=== PATIENT | female | born 1955 | race Caucasian/White ===

== ENCOUNTER 2022-07-11 05:59 | Observation (INO) ==
--- NOTE | 2022-07-07 10:31 | Anesthesiology Consultation ---
Date of Service July 07, 2022 Assessment & Plan (1) Encounter for pre-operative examination: - check CBC with diff and BMP STAT am DOS. - COVID screening: Per buzzle buffer on 07/07/2022: Travel screen negative, no known COVID-19 positive contacts or current COVID-19 related symptoms in past 2 weeks. To surgeon's discretion if preop COVID testing is needed. Chart Review Chart Review: Acceptable Risk for Surgery and Patient NOT seen in Pre Admission Testing History Surgery Operation Date: 07/13/22 07:30 Proposed Procedures p Abdominoplasty - Ilene Pickens MD s Bilateral Breast Implant Exchange for Silicone Implants - Ilene Pickens MD Height/Weight Height: 5 ft 2 in Weight: 63.503 kg Allergies Allergy/AdvReac Type Severity Reaction Status Date / Time No Known Allergies Allergy Verified 07/07/22 09:49 Medications Home Medications Medication Instructions Recorded Confirmed Last Taken atorvastatin 80 mg tablet 80 mg PO HS 02/27/20 07/07/22 07/06/20 hydroxyzine HCl 25 mg tablet 25 mg PO BID PRN Anxiety 02/27/20 07/07/22 07/06/20 tamoxifen 20 mg tablet 20 mg PO QAM 02/27/20 07/07/22 07/01/20 clindamycin HCl 300 mg capsule 300 mg PO Q6H 10 days #40 caps 02/19/21 07/07/22 Unknown fluconazole 150 mg tablet 150 mg PO Q3D 2 doses #2 tabs 02/26/21 07/07/22 Unknown (Diflucan) clindamycin HCl 300 mg capsule 300 mg PO TID 7 days #21 caps 03/01/21 07/07/22 Unknown cephalexin 500 mg capsule 500 mg PO TID 1 week #21 caps 06/22/22 07/07/22 Unknown oxycodone-acetaminophen 5 mg-325 1 tab PO Q4H PRN pain #18 tabs 06/22/22 07/07/22 Unknown mg tablet (Endocet) amlodipine 2.5 mg tablet 2.5 mg PO QAM 07/07/22 07/07/22 Unknown aspirin 81 mg tablet,delayed 81 mg PO QAM 07/07/22 07/07/22 Unknown release hydrochlorothiazide 25 mg tablet 25 mg PO QAM 07/07/22 07/07/22 Unknown Past Medical History Medical History (Updated 07/07/22 @ 10:27 by Venecia Ott PA-C) Anxiety 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 Moya- Bilateral Mastectomy 2013 Dr. Rapp- direct implant placement following mastectomy History of colonoscopy History of tooth extraction Hx of breast surgery Bilateral Breast Implant Exchange for Silicone Breast Implants with Left C apsulorrhaphy(Bilateral) - Ilene Pickens MD 07/07/20 LMA#4. Hx of total hysterectomy Status post right breast lumpectomy (~2013) Social History Smoking Status: Former smoker tobacco type: cigarettes and e-cigarettes Do You Dip or Chew Tobacco: No Smoking End Date: 3 yrs Hx Alcohol Use: Yes Alcohol type: wine alcohol intake frequency: a few times a month Hx Substance Use: No substance use type: does not use Testing Electrocardiogram Date: 06/22/22 Sinus bradycardia, rate 49 bpm Nonspecific T wave abnormality
[2022-07-11] MEDS ORDERED: ceFAZolin 2000MG 2,000 MG/15 ML SYR IV SCH (06:00)
[2022-07-11] MEDS ORDERED: LR 15ML/HR IV SCH (06:00)
[2022-07-11] MEDS ORDERED: fentaNYL citrate PF 100 MCG/2 ML VIAL ONE ×3 (06:38→09:34)
[2022-07-11] MEDS ORDERED: GLYCOPYRROLATE 0.2 MG/ML VIAL ONE (06:38)
[2022-07-11] MEDS ORDERED: ONDANSETRON INJ 2 MG/ML 2 ML VIAL ONE ×2 (06:38→10:31)
[2022-07-11] MEDS ORDERED: PROPOFOL IV EMULSION 10 MG/ML 20 ML VIAL IV ONE (06:38)
[2022-07-11] MEDS ORDERED: DEXAMETHASONE SOD INJ 4 MG/ML VIAL ONE (06:38)
[2022-07-11] MEDS ORDERED: ROCURONIUM BROMIDE 10 MG/ML 5 ML VIAL IV ONE ×12 (06:38→10:12)
[2022-07-11] MEDS ORDERED: MIDAZOLAM HCL 1 MG/ML 2ML VIAL ONE (06:38)
[2022-07-11] MEDS ORDERED: SUGAMMADEX SODIUM 200 MG/2 ML VIAL IV ONE (06:40)
[2022-07-11 06:43] LABS: Basophils # (auto) 0.11 K/uL (0-0.2); Basophils % (auto) 1.4 %; Eosinophils # (auto) 0.39 K/uL (0-0.50); Eosinophils % (auto) 4.8 %; Hematocrit (blood only) 40.8 % (37.0-47.0); Hemoglobin 14.1 g/dl (12.0-16.0); Immature Granulocytes # (auto) 0.04 K/uL (0.01-0.20); Immature Granulocytes % (auto) 0.5 %; Lymphocytes # (auto) 2.54 K/uL (1.2-3.4); Lymphocytes % (auto) 31.5 %; Mean Corpuscular Hemoglobin 30.9 pg (25.0-34.0); Mean Corpuscular Hgb Conc 34.6 g/dL (32.0-36.0); Mean Corpuscular Volume 89.5 fL (80.0-100.0); Mean Platelet Volume 11.2 fL (9.4-12.4); Monocytes # (auto) 0.68 K/uL (0.11-0.59); Monocytes % (auto) 8.4 %; Neutrophils % (auto) 53.4 %; Platelet Count 272 K/uL (130-400); RDW Coefficient of Variation 13.5 % (11.5-14.5); RDW Standard Deviation 44.6 fL (36.4-46.3); Red Blood Count 4.56 M/uL (4.20-5.40); White Blood Count 8.06 K/ul (4.8-10.8)
[2022-07-11] MEDS ORDERED: ACETAMINOPHEN 1000 MG/100 ML IV IV ONE (06:46)
[2022-07-11] MEDS ORDERED: DexMEDEtomidine HCL IV 100 MCG/ML VIAL IV ONE (06:47)
[2022-07-11 06:58] LABS: BUN Creatinine Ratio 23.6 (10-20); Calcium 9.3 mg/dl (8.5-10.1); Creatinine Clr Calc Pharmacy 66.4 ml/min; Est GFR (African American) 100.4 ml/min; Est GFR (Non-African American) 86.7 ml/min; Potassium 3.4 mmol/L (3.5-5.1)
--- NOTE | 2022-07-11 06:58 | History & Physical Bridge Note ---
Date of Service July 11, 2022 History & Physical Bridge Note I have examined the patient, reviewed the History & Physical and in the interval since the performance of the History & Physical I have noted the following changes of clinical significance: BP elevated; states it was high at her doctor's office but in the 120's at home. Discussed implant size and potential for malrotation again. She "trusts my judgement" on what would be best.
[2022-07-11] MEDS ORDERED: LIDOCAINE/EPINEPHRINE 1% 20 ML VIAL ONE (07:20)
[2022-07-11] MEDS ORDERED: BUPIVACAINE 0.25% PF 30 ML VIAL ONE (07:20)
[2022-07-11] MEDS ORDERED: FLUMAZENIL 0.1 MG/1 ML 10 ML VIAL IV PRN (07:51)
[2022-07-11] MEDS ORDERED: ATROPINE SULFATE 0.1 MG/ML 10ML SYR IV PRN (07:51)
[2022-07-11] MEDS ORDERED: ONDANSETRON INJ 2 MG/ML 2 ML VIAL IV PRN ×2 (07:51→13:37)
[2022-07-11] MEDS ORDERED: ePHEDrine sulfate 50 MG/ML AMP IV PRN (07:51)
[2022-07-11] MEDS ORDERED: PROMETHAZINE HCL 12.5 MG in SODIUM CHLORIDE 0.9% 50 ML IV PRN ×2 (07:51→13:37)
[2022-07-11] MEDS ORDERED: LABETALOL HCL IV 5 MG/ML 20ML IV PRN (07:51)
[2022-07-11] MEDS ORDERED: fentaNYL citrate PF 100 MCG/2 ML VIAL IV PRN (07:51)
[2022-07-11] MEDS ORDERED: NALOXONE HCL 0.4 MG/1 ML VIAL/CARP IV PRN (07:51)
[2022-07-11] MEDS ORDERED: ePHEDrine sulfate 50 MG/ML AMP ONE (08:23)
[2022-07-11] MEDS ORDERED: ceFAZolin 330 MG/ML 1 GM VIAL ONE (08:33)
[2022-07-11] MEDS ORDERED: GENTAMICIN SULFATE 40 MG/ML 2 ML VIAL ONE (08:41)
--- NOTE | 2022-07-11 11:31 | Operative Report ---
PG Post Operative Report Pre & Post Diagnosis Operation Date: 07/11/22 07:30 Pre-Op Diagnosis: Encounter for cosmetic Procedure, Encounter for breast reconstruction following mastectomy Post-Op Diagnosis: Encounter for cosmetic Procedure, Encounter for breast reconstruction following mastectomy I identified the patient and participated in the time-out.: Yes Procedure Operation Date: 07/11/22 07:30 Actual Procedures p Abdominoplasty(Not Applicable) - Ilene Pickens MD s Bilateral Breast Implant Exchange for Silicone Implants(Bilateral) - Ilene Pickens MD Surgeon Ilene Pickens MD Greaser Helper Jeimy Grimes PA-C Estimated Blood Loss 25 Findings Consistent with Post-Op Diagnosis Specimens bilateral implants sent for identification Anesthesia Type General Complications none Indications desiring size change, possible malrotation of the right breast implant Description of Procedure The risks, benefits and alternatives of the procedure were explained to the patient who agreed and signed consent. She was identified and marked in the preoperative holding area both in supine and standing position. She was brought to the operating room where she was positioned supine and placed under anesthesia without incident. Surgical site was prepped and draped sterilely. A time-out procedure was performed. The planned incisions were marked. 1% lidocaine with epinephrine was used to anesthetize the planned incisions along the left breast mound, incorporating the prior scar. A 15 blade scalpel was used to perform an inframammary fold incision. It should be noted patient appeared to have a vertical incision for her mastectomy, with significant scar spread along the inferior pole. Incision was deepened using electrocautery through underlying soft tissue until the capsule was identified. Capsule was incised. Pratibha Bermudez Inspira 750 cc SS X implant, serial #[id number] was removed. Again mostly well incorporated surgical mesh, possibly Seri,was identified anteriorly. Overlying the mesh, the skin was quite thin, and therefore I did not attempt to separate the surgical scaffolding from the overlying flap.Prior capsulorrhapy sutures were in place and encapsulated but appeared to be pulled away from the chest wall. I began with a 695 mL sizer which did not adequately fill the pocket and migrated to the axilla. I elected to perform capsulorrhaphy, by incising the capsule of the lateral chest wall and capsule of the lateral aspect of the pocket. I then used interrupted 0 Ethibond [id number]-[id number] sutures to tighten down the capsule. I did consider use of a 685 cc moderate profile implant but the patient was concerned about lack of projection. Pocket was irrigated with triple antibiotic irrigation. Prior to placement of the implant, the pocket had been irrigated with 0.25% Marcaine plain. An Pratibha Myers 695 cc SSF implant, serial #[id number] implant was selected. It was placed into the pocket. Once the implant was placed into the pocket, a portion of the inferior pole skin was excised in order to facilitate further tightening of the pocket and the wound was reapproximated using 2-0 Vicryl suture to reapproximate the capsule, 2-0 Vicryl deep dermal sutures, 3-0 PDS interrupted dermal sutures, 3-0 Monocryl running subcuticular suture. Similar procedure was performed on the right side, again noting well incorporated surgical mesh along the anterior pocket. Capsulorrhap hy was again performed using 0 Ethibond bbvimy-sr-zutoq sutures. An identical implant was selected, with serial #[id number]. Dermabond Prineo was applied to the incisions. Attention was then turned to the abdominoplasty, which was performed as a cosmetic procedure. See nursing documentation for start and stop times. I reassessed my markings which included a lower horizontal abdominal incision just below her prior Pfannenstiel incision. Incision was marked bilaterally to the ASIS. I began by injecting 1% lidocaine with epinephrine along the planned incision. The lower abdominal incision was made using a 15-blade scalpel to incise epidermis and superficial dermis followed by electrocautery to incise deep dermis, subcutaneous fat, Ant's fascia down to the abdominal wall. Electrocautery was used to elevate the anterior abdominal skin flap ligating the perforating vessels with electrocautery. Dissection was carried up to the level of the umbilicus in the midline. At this point, a 15-blade scalpel was used to circumscribe the umbilicus. A vertical midline incision was then made from the incision to the umbilicus and divided in the midline using electrocautery. The umbilicus was then dissected out using electrocautery down to abdominal wall. The umbilical stalk appeared viable throughout the procedure.I continued undermining the abdominal wall skin flap above the umbilicus to the xiphoid process, significantly narrowing the dissection to avoid jeopardizing blood supply.I began repair of the rectus diastasis, which was about 2 cm in greatest diameter and extended nearly the full length of the abdomen, widest at the umbilicus. Plication from the xiphoid to the umbilicus and from the umbilicus to the pubic symphysis was performed using 0 Prolene interrupted uetogq-sb-adnal sutures. 0 Prolene running suture was then placed to oversew the ovdceh-mf-ynhmf sutures and reinforced the repair. At this point, the bed was flexed and the mid portion of the superior skin flap was inset above the mons pubis using 2-0 Vicryl suture. Skin flaps were marked for excision. A 15-blade scalpel was used to make these incisions and the incision was deepened through dermis, subcutaneous fat, Ant's fat using electrocautery.0.25% Marcaine plain was injected into the abdominal wall fascia prior to closure. 15 Greenlandic Marcel drains were placed in the wound bed and brought out through a separate stab incision in the mons pubis. The drains were sutured into place using 3-0 nylon. The umbilicus was brought out through an inverted triangular incision in the abdominal wall. This was performed using a 15-blade scalpel. Wound closure was then begun lateral to medial using 2-0 Vicryl Ant's fascia sutures, 2-0 Vicryl deep dermal sutures, 2-0 PDO running superficial Quill suture, 3-0 Monocryl running subcuticular suture. Umbilicus was brought out through the inverted triangle incision and was sutured into place using 4-0 chromic half buried horizontal mattress sutures. The umbilicus was dressed using Xeroform and the incision was dressed using Dermabond Prineo. Dry dressings and a surgical bra and binder were placed.The procedure was tolerated well. The patient was awakened and transferred to recovery in satisfactory condition. Jeimy Grimes PA-C was present and scrubbed throughout the entire procedure, assisting with retraction and simultaneous wound closure. I attest to the content of the Intraoperative Record and any orders documented therein. Any exceptions are noted below.
--- NOTE | 2022-07-11 11:32 | Post Operative Brief Note ---
PG Immediate Post Op with CF Date of Surgery July 11, 2022 Pre & Post Diagnosis Operation Date: 07/11/22 07:30 Pre-Op Diagnosis: Encounter for cosmetic Procedure, Encounter for breast reconstruction following mastectomy Post-Op Diagnosis: Encounter for cosmetic Procedure, Encounter for breast reconstruction following mastectomy I identified the patient and participated in the time-out.: Yes Procedure Operation Date: 07/11/22 07:30 Actual Procedures p Abdominoplasty(Not Applicable) - Ilene Pickens MD s Bilateral Breast Implant Exchange for Silicone Implants(Bilateral) - Ilene Pickens MD Surgeon Ilene Pickens MD Air Conditioning Sheet Metal Installer Jeimy Grimes PA-C Estimated Blood Loss 25 Findings Consistent with Post-Op Diagnosis Specimens Specimen Description: A. Left breast mastectomy scar B. Right breast mastectomy scar C. Left breast explant D. Right breast explant Drains Khalif-Caraballo Drain Anesthesia Type General Complications none
[2022-07-11] MEDS: HYDROmorphone INJ 1 MG/ML SYRINGE IV PRN ×8 (11:54→12:30)
--- NOTE | 2022-07-11 12:12 | Surgery Progress Note ---
Date of Service July 11, 2022 Assessment & Plan (1) Encounter for breast reconstruction following mastectomy: Plan: S/P Bilateral breast implant exchange and abdominoplasty 1. observe overnight, anticipate d/c in AM 2. mosquera to stay in overnight, remove in AM Subjective Patient seen resting in PACU. Has post-op pain. Physical Exam Physical Exam: drains with scant output. abd binder and bra in place Results & Data Vital Signs (Past 12 Hours) Vital Signs Temp Pulse Resp BP Pulse Ox O2 Del Method 07/11/22 12:00 60 12 167/79 H 97 Room Air 07/11/22 11:50 68 13 165/99 H 98 Room Air 07/11/22 11:44 36.0 C L 87 13 173/81 H 99 Room Air 07/11/22 06:16 36.8 C 70 20 172/68 H 99 Room Air PG Care Time/CCT Total # of Minutes Spent Total Time Spent with Patient: Total time spent is greater than 50% in coordination of care (as documented) at patient's floor/unit and/or counseling patient: Coding Level of Care Code 74429 Post Operative Follow-Up Diagnoses Encounter for breast reconstruction following mastectomy Z42.1
--- NOTE | 2022-07-11 12:51 | Anesthesiology Progress Note ---
Date of Service July 11, 2022 Anesthesia Post Procedure Vital Signs Vital Signs: Temp Pulse Resp BP Pulse Ox O2 Del Method 07/11/22 12:40 36.3 C L 65 12 140/56 L 98 Room Air 07/11/22 12:30 67 12 155/59 H 96 Room Air 07/11/22 12:20 81 12 166/70 H 95 Room Air 07/11/22 12:10 61 12 167/81 H 95 Room Air 07/11/22 12:00 60 12 167/79 H 97 Room Air 07/11/22 11:50 68 13 165/99 H 98 Room Air 07/11/22 11:44 36.0 C L 87 13 173/81 H 99 Room Air 07/11/22 06:16 36.8 C 70 20 172/68 H 99 Room Air Pain Intensity Abdomen: Pain Intensity: 3 Transfer of Care Handoff Completed per policy Notes Mental Status: alert / awake / arousable Patient Amnestic to Procedure: Yes Nausea / Vomiting: adequately controlled Pain: adequately controlled Airway Patency, RR, SpO2: stable & adequate BP & HR: stable & adequate Hydration State: stable & adequate Anesthetic Complications: no major complications apparent
[2022-07-11] MEDS ORDERED: MoRPHine SULFATE 2 MG/ML CARP IV PRN (13:37)
[2022-07-11] MEDS ORDERED: oxyCODONE/ACETAMINOPHEN 5mg/325mg TAB PO PRN (13:37)
[2022-07-11] MEDS ORDERED: LORazepam 0.5 MG TAB PO PRN (13:37)
[2022-07-11] MEDS ORDERED: MoRPHine SULFATE 4 MG/ML 1 ML CARP\\VIAL IV PRN (13:37)
[2022-07-11] MEDS ORDERED: ACETAMINOPHEN 325 MG TAB PO PRN (13:37)
[2022-07-11] MEDS ORDERED: diphenhydrAMINE Capsule 25 MG CAP PO PRN (13:37)
[2022-07-11] MEDS ORDERED: diphenhydrAMINE 50 MG/ML VIAL IV PRN (13:37)
[2022-07-11] MEDS: D5W AND 1/2NSS + 20MEQ KCL 20 MEQ/1,000 ML BAG IV SCH (14:51)
[2022-07-11] MEDS: oxyCODONE/ACETAMINOPHEN 5mg/325mg TAB PO PRN ×2 (17:37→21:42)
[2022-07-11] MEDS: ceFAZolin 2000MG 2,000 MG/15 ML SYR IV SCH (18:12)
[2022-07-11] MEDS ORDERED: ATORVASTATIN 40 MG TAB PO SCH (21:00)
[2022-07-12] MEDS: ceFAZolin 2000MG 2,000 MG/15 ML SYR IV SCH (03:09)
[2022-07-12] MEDS: D5W AND 1/2NSS + 20MEQ KCL 20 MEQ/1,000 ML BAG IV SCH (03:10)
[2022-07-12] MEDS: oxyCODONE/ACETAMINOPHEN 5mg/325mg TAB PO PRN (08:50)
--- NOTE | 2022-07-12 08:50 | Surgery Progress Note ---
Date of Service July 12, 2022 Assessment & Plan (1) Encounter for breast reconstruction following mastectomy: Plan: Doign well. D/C home after able to void. F/U in office tomorrow. Admission and Anticipated Discharge Date Admission Date: July 11, 2022 Subjective Patient OOB in chair, tolerating regular breakfast. Lee removed but has not voided yet. Physical Exam Physical Exam: binder/bra in place. drains with small amount of serosang output Results & Data Vital Signs (Past 12 Hours) Vital Signs Temp Pulse Resp BP Pulse Ox O2 Del Method 07/12/22 07:50 37.1 C 66 18 131/66 95 Room Air 07/12/22 03:38 36.8 C 72 16 133/65 95 Room Air 07/11/22 23:00 36.7 C 79 16 119/70 98 Room Air PG Care Time/CCT Total # of Minutes Spent Total Time Spent with Patient: Total time spent is greater than 50% in coordination of care (as documented) at patient's floor/unit and/or counseling patient: Coding Level of Care Code 06387 Post Operative Follow-Up Diagnoses Encounter for breast reconstruction following mastectomy Z42.1
[2022-07-12] MEDS ORDERED: amLODIPine BESYLATE 5 MG TAB PO SCH (09:00)
[2022-07-12] MEDS ORDERED: MULTIVITAMIN TAB PO SCH (09:00)
[2022-07-12] MEDS ORDERED: hydroCHLOROthiazide 25 MG TAB PO SCH (09:00)
--- NOTE | 2022-07-12 11:36 | Discharge Summary ---
Date of Service July 12, 2022 Admission HPI Per Admitting Provider Patient with history of silicone breast implants in setting of bialteral mastectomy. She currently has 750cc implants bilateral, plan is to downsize to 700cc implants. She is happy with the size/projection of her implants, but notes they do rotate in the pocket. She did consider flap procedure for reconstruction, but ultimately would like to stay with implants. She would like her rectus plicated if there is a diastasis. Ana Laura has not had any nicotine products since January. Admission Exam Per Admitting Provider Significant excess skin of upper and lower abdomen, small overhanging pannus, skin laxity noted. No hernias. No significant rectus diastases noted. There is a well-healed lower vertical midline incision from hysterectomy. Physical exam shows bilateral silicone breast implants in place. Left implant does appear to be malrotated. Scars are well-healed. No evidence of capsular contracture. Lower pole thin is very attenuated with wide scars. Principal Diagnosis Encounter for breast reconstruction following mastectomy, Encounter for cosmetic surgery Discharge Exam abd binder and bra in place. drains with scant serosang output Discharge Data Allergies Allergy/AdvReac Type Severity Reaction Status Date / Time No Known Allergies Allergy Verified 07/11/22 06:19 Procedures Performed Operation Date: 07/11/22 07:30 Actual Procedures p Abdominoplasty (Cosmetic)(Not Applicable) - Ilene Pickens MD s Bilateral Breast Implant Exchange for Silicone Implants (Insured)(Bilateral) - Ilene Pickens MD Hospital Course (1) Encounter for breast reconstruction following mastectomy: Patient presented to [facility] with history of silicone breast implants. She was taken to the OR and underwent bilateral breast implant exchange for silicone breast implants and abdominoplasty. There were no intraoperative complications. She was taken to recovery and transferred to med/surg for observation. On POD#1, she was feeling well. She was tolerating a regular diet and ambulating. She was able to void after catheter was removed. On exam, her vitals were stable. Her incisions were CDI. Her drains had appropriate output. She was discharged home with instructions to follow-up in the office in one day. Total Time Total Time Spent Total Time Spent (In Minutes): 15 Total Time Includes: Examination of the Patient, Discharge Planning, Medication Reconciliation and Communication With Other Providers Discharge Plan Discharge Items Patient Disposition: Home - Self-Care Reason For Visit: Encounter for cosmetic Procedure, Encounter for Br Discharge Diagnosis: s/p implant exchange and abdominoplasty Activity: As commented below Non-emergency contact: Surgeon Call non-emergency contact if: you have any medication questions, your pain is not controlled, you have a fever, your wound has increased redness and your wound has increased drainage Follow-up/Referrals: Ilene Pickens MD [Physician] - 07/13/22 2:15 pm PCP,NO [Primary Care Provider] - Diet: Regular Addtl Attending Provider Instructions: ACTIVITY RECOMMENDATIONS: __Normal activities _x_No bending, lifting or straining. Keep arms at shoulder height or below __No driving __Driving allowed when you are off pain medications _x_Walking permitted __You should have help at home for ___ days DRESSINGS: __No dressings required _x_Keep dressings dry/in place until first office visit. Binder and Bra must stay on __Remove dressings ___ and leave dressings off __Apply ice ___ days __Remove dressings and reapply garment __Apply antibiotic ointment (Bacitracin, Neosporin, etc) to wounds 3-4 times/day for 10 days BATHING: _x_Keep dressings dry _x_Sponge bathing permitted __Showering permitted _x_No swimming, hot tubs or soaking in a tub MEDICATIONS: Resume previous medications unless instructed otherwise by your surgeon. _x_Do not use aspirin, Motrin, Advil or Ibuprofen as these may promote bleeding. Please use Tylenol. _x_Prescription(s) provided: pain medication and antibiotics were provided at y our last office visit OTHER INSTRUCTIONS: _x_Record drain output 2-3 times per day SPECIAL CARE INSTRUCTIONS: * It is normal to have a mild fever after surgery. If your temperature is higher than 101.5 degrees F, please call the office at [phone]. * Constipation is a typical side effect of pain medication. An over-the- counter stool softener will help relieve this. * Leaking around surgical drains may occur and should not cause concern. Sometimes these drains become clogged. If this happens, remove the bulb and milk the clot out of the tube, then replace the bulb. * Drainage from wounds after liposuction is normal and should be expected. Garments will become soiled. You should protect furniture and bedding. This drainage should mostly subside within 2-3 days. Leave garments in place unless instructed to remove them. * If you have unusual drainage from a wound or are concerned you have an infection or have any questions or concerns, please call the office at [phone]. FOLLOW UP VISIT: If not already scheduled, please call the office, , when you return home after surgery to schedule an appointment to be seen in _1__ days. Pending Studies at Discharge: Yes Stand-Alone Forms: My [facility], Pain - Opioid Pain Management, Smoking Cessation Medications and DC Order Prescriptions: Continued atorvastatin 80 mg tablet 80 mg PO HS hydroxyzine HCl 25 mg tablet 25 mg PO BID PRN (Reason: Anxiety) oxycodone-acetaminophen [Endocet] 5-325 mg tablet 1 tab PO Q4H PRN (Reason: pain) Qty: 18 0RF Rx Instructions: initial therapy Dr. Pickens [id number] cephalexin 500 mg capsule 500 mg PO TID 7 Days Qty: 21 0RF amlodipine 2.5 mg Tablet 2.5 mg PO QAM hydrochlorothiazide 25 mg Tablet 25 mg PO QAM alendronate 70 mg tablet 70 mg PO WK Discontinued tamoxifen 20 mg tablet 20 mg PO QAM aspirin [Aspir-81] 81 mg Tablet,Delayed Release (Dr/Ec) 81 mg PO QAM Discharge Orders: Discharge Order (Routine); Ordered 07/12/22 Ordered By: Jeimy Lam/Other Patient Handouts: Khalif Caraballo Drain Tube Dc, Post Op Drain Emptying Steps Admission Data Admit Date/Time: 07/11/22 11:51 Attending Provider: Ilene Pickens Admit Provider: Ilene Pickens Primary Care Provider: PCP,NO Other Interventions: Discharge Summary Assessment (RN) Last Done: 07/12/22 09:42 Coding Level of Care Code 70304 OBS Care - Discharge Diagnoses Encounter for breast reconstruction following mastectomy Z42.1
== END 2022-07-12 10:28 | disposition home or self-care (01) ==
LOC: ASU 05:59 → 3E 05:59